=== PATIENT | female | born 1990 | race Caucasian/White ===

== ENCOUNTER 2018-01-26 19:53 | Emergency (ER) | payer OTHER ==
[2018-01-26] MEDS ORDERED: Clindamycin/D5W 900 mg/50 ml Premix Bag ONE (20:14)
[2018-01-26] MEDS ORDERED: Acetaminophen 500 MG TAB ONE (20:20)
--- NOTE | 2018-01-26 21:10 | CT ---
CT OF THE FACE WITH CONTRAST 01/26/18 INDICATION: Left facial swelling with fever. FINDINGS: No definite intracranial abnormality is evident within the visualized aspects of the cranial vault. T here is some mild enhancement of the palpebra and periorbital soft tissues overlying the left orbit. No drainable fluid collection is evident. The retro-orbital fat of both orbits appear within normal l imits. The cheese processor space appears within normal limits. There is a few shotty appearing lymph nodes within the upper neck bilaterally, left greater than right. The submandibular and parotid glands cassidy ear within normal limits. The visualized aspects of the aerodigestive tract are within normal limits. The paranasal sinuses and mastoid air cells are clear. The visualized upper cervical spine is unrema rkable. IMPRESSION: Left preseptal orbital cellulitis without evidence of a drainable fluid collection. POS: CAROL
== END 2018-01-26 23:01 | disposition home or self-care (01) ==
LOC: SCSER 19:53
DX: H60.12 Cellulitis of left external ear (principal); L03.211 Cellulitis of face; H60.91 Unspecified otitis externa, right ear; F98.8 Other specified behavioral and emotional disorders with onset usually occurring in childhood and adolescence; F17.210 Nicotine dependence, cigarettes, uncomplicated; J45.909 Unspecified asthma, uncomplicated; Z79.899 Other long term (current) drug therapy
CPT/HCPCS: 70487; 96361; 96365; 96375; J3370; J3490

== ENCOUNTER 2018-04-12 16:23 | Day surgery (SDC) | payer OTHER ==
[2018-04-12 16:58] VITALS: BMI 35.7
--- NOTE | 2018-04-12 17:15 | PDOC.LDHP ---
Labor and Delivery H&P Chief complaint: other (Here for BP check) HPI: Patient of Dr Turk Home BP was "140" ROS: Has had headache HPI: 28 yo at 24 weeks 0 days here for BP check. Took BP at work and was "140" systolic. Due to MURILLO, came in for eval. Also with some heartburn sxs. No VB , no visual changes, no trauma. Good FM. Current gestational age (weeks): 24 (0 days) Dating criteria: last menstrual period Grav: 3 Para: 0 OB History Details: 2 early SAB2 Current complications: none Abnormal US findings: No Current medications: pre-janna vitamins Previous surgical history: other (T&A; rhinoplasty; breast augmentation) Allergies/Adverse Reactions: Allergies Allergy/AdvReac Type Severity Reaction Status Date / Time adhesive Allergy Mild itch Verified 06/01/14 11:35 morphine Allergy Mild itch Verified 06/01/14 11:35 Social history: none - Physical Exam Vital signs reviewed and normal: yes (127/69;118/63 p 78 Afebrile) General: NAD Heart: RRR Lungs: CTAB Abdomen: gravid Extremeties: no edema FHT: category 1 [place] contractions every: none - Assessment 24 weeks 0 days with MURILLO HX...nortmotensive here. May be discomforts of - Plan Plan: observation in L&D (seriual BPs here; check CMP and CBC. No urine protein now as no elevated BPs yet. Tylenol prn)
[2018-04-12 17:40] LABS: #Eosinphils 0.1 thou/uL (0.0-0.7); #Lymphocytes 1.8 thou/uL (1.20-3.40); #Monocytes 0.6 thou/uL (0.11-0.59); #Neutrophils 9.8 thou/uL (1.40-6.50); %Basophils 0.1 % (0.0-1.0); %Eosinophils 0.9 % (0.0-10.0); %Lymphocytes 14.3 % (21.0-51.0); %Monocytes 5.1 % (0.0-10.0); %Neutrophils 79.7 % (42.0-75.0); Hemoglobin 12.7 g/dL (12.0-16.0); Mean Corpuscular HGB CONC 33.8 g/dL (32.0-36.0); Mean Corpuscular Hemoglobin 32.1 pg (27.0-31.0); Mean Corpuscular Volume 94.7 fL (78.0-98.0); Mean Platelet Volume 8.6 fL (7.4-10.4); Platelet Count 145 thou/uL (130-400); RBC Distribution Width 12.2 % (11.5-14.5); Red Blood Cell (RBC) Count 3.96 mill/uL (4.20-5.40); White Blood Cell (WBC) Count 12.3 thou/uL (4.8-10.8)
--- NOTE | 2018-04-12 17:57 | PDOC.EVN ---
Event Note - Event Note Event Note: CBC wnl...CMP pending. BPs wnl here. Info given to patient.
[2018-04-12 18:08] LABS: ALT (SGPT) 9 U/L (8-55); AST (SGOT) 12 U/L (5-34); Albumin 3.6 g/dL (3.5-5.0); Alkaline Phosphatase 63 U/L (40-150); Anion Gap 12 mmol/L (10-20); BUN (Urea Nitrogen) 4 mg/dL (7.0-18.7); Bilirubin, Total 0.3 mg/dL (0.2-1.2); Calc. Creatinine Clearance 187 mL/min (70-130); Carbon Dioxide 20 mmol/L (22-29); Chloride 107 mmol/L (98-107); Estimated GFR-MDRD Greater than 90; Globulin 2.3 g/dL (2.4-3.5); Glucose 79 mg/dL (70-105); Potassium 3.8 mmol/L (3.5-5.1); Protein, Total 5.9 g/dL (6.0-8.3); Sodium 135 mmol/L (136-145)
--- NOTE | 2018-04-12 18:11 | PDOC.EVN ---
Event Note - Event Note Event Note: CMP ok.
== END 2018-04-12 18:20 | disposition home health service (06) ==
LOC: L&D/OP 16:23
PROVIDERS: ATTEND Obstetrics & Gynecology
DX: O99.89 Other specified diseases and conditions complicating pregnancy, childbirth and the puerperium (principal); R51 Headache; Z3A.24 24 weeks gestation of pregnancy; Z88.8 Allergy status to other drugs, medicaments and biological substances
CPT/HCPCS: 36415; 80053; 85025; 99283

== ENCOUNTER 2018-06-28 13:11 | Day surgery (SDC) | payer OTHER ==
[2018-06-28 14:19] VITALS: BMI 38.0
[2018-06-28] MEDS ORDERED: Dextrose 5%-Lactated Ringers 1,000 ML IV SCH (14:30)
--- NOTE | 2018-06-28 14:33 | PDOC.EVN ---
Event Note - Event Note Event Note: Patient in Triage for N/V at 35 weeks, no evidence of labor H&P Dictated. Patient of Dr Turk. Workup in process.
[2018-06-28 14:49] LABS: #Eosinphils 0.1 thou/uL (0.0-0.7); #Lymphocytes 1.3 thou/uL (1.20-3.40); #Monocytes 0.7 thou/uL (0.11-0.59); #Neutrophils 8.5 thou/uL (1.40-6.50); %Basophils 0.3 % (0.0-1.0); %Eosinophils 0.9 % (0.0-10.0); %Lymphocytes 12.6 % (21.0-51.0); %Monocytes 6.6 % (0.0-10.0); %Neutrophils 79.6 % (42.0-75.0); Mean Corpuscular HGB CONC 33.7 g/dL (32.0-36.0); Mean Corpuscular Hemoglobin 31.1 pg (27.0-31.0); Mean Corpuscular Volume 92.3 fL (78.0-98.0); Mean Platelet Volume 10.3 fL (7.4-10.4); Platelet Count 143 thou/uL (130-400); RBC Distribution Width 12.7 % (11.5-14.5); Red Blood Cell (RBC) Count 4.19 mill/uL (4.20-5.40); White Blood Cell (WBC) Count 10.7 thou/uL (4.8-10.8)
[2018-06-28] MEDS ORDERED: Ondansetron PF 4 MG/2 ML Vial ONE (15:09)
[2018-06-28 15:11] LABS: ALT (SGPT) 13 U/L (8-55); AST (SGOT) 18 U/L (5-34); Albumin 3.4 g/dL (3.5-5.0); Alkaline Phosphatase 163 U/L (40-150); Anion Gap 13 mmol/L (10-20); BUN (Urea Nitrogen) 7 mg/dL (7.0-18.7); Bilirubin, Total 0.2 mg/dL (0.2-1.2); Calc. Creatinine Clearance 212 mL/min (70-130); Carbon Dioxide 21 mmol/L (22-29); Chloride 107 mmol/L (98-107); Estimated GFR-MDRD Greater than 90; Globulin 2.5 g/dL (2.4-3.5); Glucose 98 mg/dL (70-105); Potassium 4.1 mmol/L (3.5-5.1); Protein, Total 5.9 g/dL (6.0-8.3); Sodium 137 mmol/L (136-145)
--- NOTE | 2018-06-28 15:13 | HP ---
TIME OF EVALUATION: Roughly 1415. LOCATION: Labor and Delivery Triage. This is a patient of Dr. Turk. CHIEF COMPLAINT: Nausea and vomiting at 35 weeks. HISTORY OF PRESENT ILLNESS: This is a 28-year-old 3, para 0, with 2 previous miscarriages with an EDC of August 02, giving her a current gestational age of 35 weeks and 0 days. She is here for nausea and vomiting mostly this morning and 2 bouts of emesis. She last had emesis about 1 hour previously. She denies fever, contractions, leakage of fluid, vaginal bleeding, or other sick contacts. She does not have diarrhea or dysuria. She does not state visual changes or right epigastric pain. She states that she has had borderline blood pressures most of this , but her blood pressure here was 136/89. REVIEW OF SYSTEMS: Complete review of systems was checked and is otherwise negative unless specified in the HPI. PAST MEDICAL HISTORY: Unremarkable. She does not take any hypertensive medications. MEDICATIONS: Equals vitamins and Zantac. PAST SURGICAL HISTORY: Rhinoplasty, adenoids, and breast augmentation. ALLERGIES: SHE HAS AN ALLERGY TO MORPHINE AND ADHESIVE TAPE. OBSTRETICAL HISTORY: Significant for 2 previous miscarriages. SOCIAL HISTORY: Negative for alcohol, tobacco, or drug use. PHYSICAL EXAMINATION: VITAL SIGNS: Her blood pressure is 136/89, she is afebrile and non tachycardic. GENERAL: She is in no acute distress. ABDOMEN: Soft and nontender and size consistent with dates. There is no evidence of right upper quadrant tenderness on deep palpation. On monitors, heart tones are in the 130s to 140s and are reactive. There is only one contraction noted on tocodynamometer after about a 10 minute strip. Interventions ordered. I have ordered a CMP, a CBC, and a right upper quadrant ultrasound. I have also ordered 1 L of D5 LR for hydration. ASSESSMENT: This is a G3, P0, at 35 weeks with nonspecific nausea and vomiting , may be gastroenteritis. PLAN: 1. I will do lab work to rule out other etiologies. 2. I will check a right upper quadrant ultrasound. 3. I have ordered hydration for symptomatic relief. 4. Continue monitors for now. Job ID: [id number] MTDD
[2018-06-28] MEDS ORDERED: Ondansetron PF 4 MG/2 ML Vial IVP SCH (15:15)
--- NOTE | 2018-06-28 16:00 | ULT ---
ULTRASOUND GALLBLADDER RIGHT UPPER QUADRANT: 06/28/18 HISTORY: Nausea and vomiting. COMPARISON: None. TECHNIQUE: Real time lewis scale and color evaluation of the right upper quadrant of the abdomen was performed. FINDINGS: The visualized portions of the pancreas are unremarkable. Hepatic echotexture is normal. Liver measures 17.5 cm in length. Gallbladder wall thickness is normal. No pericholecystic fluid. Portal vein is patent with antegrade flow. common bile duct measures 6 mm. Right kidney measures 11.6 x 5.3 x 5.7 cm without mass, hydronephrosis or abnormal calcifications. IMPRESSION: Normal exam. POS: TPC
--- NOTE | 2018-06-28 18:28 | PDOC.EVN ---
Event Note - Event Note Event Note: Triage follow-up: Pt feels better after Zofran. No evidence labor. HCT 38, platelets 133, AST/ALT normal. CR = .64; RUQ US normal liver texture, gallbladder wall normal, no evidence hepatic vein thrombosis, common bile duct 6 mm. Workup normal, send home with Zofran Rx.
== END 2018-06-28 18:30 | disposition home or self-care (01) ==
LOC: L&D/OP 13:11
PROVIDERS: ATTEND Obstetrics & Gynecology
DX: O21.2 Late vomiting of pregnancy (principal); Z3A.35 35 weeks gestation of pregnancy; Z79.899 Other long term (current) drug therapy; Z88.5 Allergy status to narcotic agent; Z91.048 Other nonmedicinal substance allergy status
CPT/HCPCS: 76705; 80053; 85025; 96360; 96361; 96375; 99283; J2405

== ENCOUNTER 2018-07-11 16:42 | Inpatient (IN) | payer OTHER ==
[2018-07-11 17:15] VITALS: BMI 42.1
[2018-07-11 18:11] LABS: Bilirubin Negative (Negative); Blood, Urine Negative (Negative); Clarity CLEAR (Clear); Glucose, Urine (Dipstick) Negative (Negative); Leukocyte Trace (Negative); Nitrite Negative (Negative); Protein, Urine (Dipstick) 30 mg/dL (Neg-Trace); Specific Gravity, Urine 1.022 (1.002-1.036); Urobilinogen 0.2 mg/dL (0.2-1.0)
[2018-07-11 18:14] LABS: Bacteria/HPF None Seen HPF (None Seen); Hyaline Casts/LPF 0-3 HYALINE CAST LPF (0-3 Hyaline); Pathc Cast-AUWi Flag 0.29 (0-2.49); RBC/HPF 0-3 HPF (0-3)
[2018-07-11 18:42] LABS: #Basophils 0.1 thou/uL (0.0-0.2); #Eosinphils 0.1 thou/uL (0.0-0.7); #Lymphocytes 1.4 thou/uL (1.20-3.40); #Monocytes 0.7 thou/uL (0.11-0.59); #Neutrophils 8.8 thou/uL (1.40-6.50); %Basophils 0.6 % (0.0-1.0); %Eosinophils 0.8 % (0.0-10.0); %Lymphocytes 12.9 % (21.0-51.0); %Monocytes 6.5 % (0.0-10.0); %Neutrophils 79.2 % (42.0-75.0); Hemoglobin 13.2 g/dL (12.0-16.0); Mean Corpuscular Hemoglobin 31.7 pg (27.0-31.0); Mean Corpuscular Volume 93.4 fL (78.0-98.0); Mean Platelet Volume 10.7 fL (7.4-10.4); Platelet Count 133 thou/uL (130-400); Red Blood Cell (RBC) Count 4.15 mill/uL (4.20-5.40); White Blood Cell (WBC) Count 11.2 thou/uL (4.8-10.8)
[2018-07-11 18:54] LABS: ALT (SGPT) 13 U/L (8-55); AST (SGOT) 18 U/L (5-34); Albumin 3.2 g/dL (3.5-5.0); Alkaline Phosphatase 168 U/L (40-150); Anion Gap 12 mmol/L (10-20); BUN (Urea Nitrogen) 8 mg/dL (7.0-18.7); Bilirubin, Total 0.2 mg/dL (0.2-1.2); Calc. Creatinine Clearance 184 mL/min (70-130); Calcium 10.5 mg/dL (7.8-10.44); Carbon Dioxide 25 mmol/L (22-29); Chloride 105 mmol/L (98-107); Estimated GFR-MDRD 88; Glucose 75 mg/dL (70-105); Potassium 4.4 mmol/L (3.5-5.1); Protein, Total 6.2 g/dL (6.0-8.3); Sodium 138 mmol/L (136-145)
[2018-07-11 18:55] LABS: Large Platelets SLIGHT; PLT Morphology Comment Appears Adequate
--- NOTE | 2018-07-11 19:09 | PDOC.LDHP ---
Labor and Delivery H&P Chief complaint: other (Nausea, vomitting) HPI: 28 yo WF presents c/o nausea, emesis and swelling at home. Current gestational age (weeks): 37 Due date: 08/02/18 Dating criteria: first trimester ultrasound Grav: 3 Para: 0 OB History Details: PNC with Dr. Turk complicated by elevated BP in 3rd trimester, on ASA 81 mg. Set to induced tomorrow PM. Current complications: other Abnormal US findings: No Past Medical History: SVT- no meds at present Current medications: pre- vitamins, other (ASA as above) Previous surgical history: other (T&A, pilonidal cyst, rhinoplasy,) Allergies/Adverse Reactions: Allergies Allergy/AdvReac Type Severity Reaction Status Date / Time adhesive Allergy Mild itch Verified 06/01/14 11:35 morphine Allergy Mild itch Verified 06/01/14 11:35 Social history: none - Physical Exam Abnormal vital signs: BP per RN notes General: NAD Lungs: nonlabored breathing Abdomen: NTTP Extremeties: pitting edema FHT: category 1 [place] contractions every: no UCs seen - Vaginal Exam cm dilated: 1 Effacement: 50% Station: -1 - OB Labs GBS: positive - Assessment L&D Assessment: medically indicated induction (PIH with normal labs) - Plan Plan: admit to L&D, cervical ripening, GBS antibiotic prophylaxis (Will start Mg if needed, watch BPs carefully, Dr. Turk notified and wants Hospitalist to manage)
[2018-07-11] MEDS ORDERED: Ibuprofen 800 MG TAB PO PRN (19:15)
[2018-07-11] MEDS ORDERED: Zolpidem Tartrate 5 MG TAB PO PRN (19:15)
[2018-07-11] MEDS ORDERED: Meperidine HCl/PF 25 MG/ML VIAL IM/IV PRN (19:15)
[2018-07-11] MEDS ORDERED: Ondansetron PF 4 MG/2 ML Vial IVP PRN (19:15)
[2018-07-11] MEDS ORDERED: Lactated Ringer's 1,000 ML IV SCH (19:15)
[2018-07-11] MEDS ORDERED: NS / Oxytocin 40 units/1000ml 1,000 ML IV PRN (19:15)
[2018-07-11] MEDS ORDERED: Calcium Gluc 4.6 MEQ/10 ML (100 MG/ML) SLOW IVP PRN (19:15)
[2018-07-11] MEDS ORDERED: Acetaminophen 500 MG TAB PO PRN (19:15)
[2018-07-11] MEDS ORDERED: Lidocaine 1% (PF) 30 ML VIAL SC PRN (19:15)
[2018-07-11] MEDS ORDERED: Penicillin G Potassium 5 MILL.UNITS in Sodium Chloride 0.9% 100 ML IVPB SCH (19:15)
[2018-07-11] MEDS ORDERED: Promethazine HCl 25 MG/ML VIAL IM PRN (19:15)
[2018-07-11] MEDS: Lactated Ringer's 1,000 ML IV SCH (20:00)
[2018-07-11] MEDS: Misoprostol 100 MCG TAB VAG SCH (20:18)
[2018-07-11 20:53] LABS: Syphilis Antibody Nonreactive (Nonreactive); Syphilis Antibody Index 0.04 S/CO (<1.00 Non-Reactive)
[2018-07-11 23:49] LABS: HBSAg Index 0.18 S/CO (0-0.99); Hep B Surf Ag Non-Reactive S/CO (NonReactive)
[2018-07-12] MEDS: Misoprostol 100 MCG TAB VAG SCH ×2 (00:29→14:51)
[2018-07-12] MEDS ORDERED: Mag-Al 1200 mg/1200 mg/30 ML UDCUP PO PRN (00:29)
[2018-07-12] MEDS: Lactated Ringer's 1,000 ML IV SCH ×2 (02:46→14:13)
--- NOTE | 2018-07-12 04:51 | PDOC.EVN ---
Event Note - Event Note Event Note: Reports cramping. Cytotec x 2 given so far. BP= 136/90. FHTs stable, + accels. UCs q 2 mins. Plan: Cont. induction. Watch BPs.
[2018-07-12] MEDS: NS w/ Oxytocin 10 units 500 ML IV SCH ×2 (08:07→11:46)
[2018-07-12] MEDS: Penicillin G 2.5 MILL.units 2.5 MILL.UNITS in Premix Bag 1 BAG IVPB SCH ×3 (08:07→18:55)
[2018-07-12] MEDS ORDERED: Fentanyl 4 mcg/Bup 0.1% Cadd 100 ML ONE ×2 (10:38→17:36)
[2018-07-12] MEDS ORDERED: Lidocaine 1.5% w/Epi 1:200K 30 ML VIAL (Epid Use) ONE (10:59)
[2018-07-12] MEDS ORDERED: ePHEDrine/0.9% NaCl/PF SYRINGE 50 mg/10 ml SLOW IVP PRN (11:33)
[2018-07-12] MEDS ORDERED: diphenhydrAMINE 50 MG/ML VIAL IVP PRN (11:33)
[2018-07-12] MEDS ORDERED: Promethazine HCl 25 MG/ML VIAL IM PRN (11:33)
[2018-07-12] MEDS ORDERED: Ondansetron PF 4 MG/2 ML Vial IVP PRN (11:33)
[2018-07-12] MEDS ORDERED: Eucerin (Mineral Oil/Petrolatum,White) 30 gm Jar TOP PRN (11:33)
[2018-07-12] MEDS ORDERED: Acetaminophen 325 MG TAB PO PRN (11:33)
[2018-07-12] MEDS ORDERED: Lactated Ringer's 500 ML IV PRN (11:33)
[2018-07-12] MEDS ORDERED: Naloxone HCl 0.4 mg/ml Vial IVP PRN ×2 (11:33)
[2018-07-12] MEDS ORDERED: Fentanyl 4 mcg/Bupivacaine 0.1% Cassette 100 ML EPIDURAL SCH (11:45)
[2018-07-12] MEDS ORDERED: Communication Order-Pharmacy FS SCH (11:45)
[2018-07-12] MEDS ORDERED: Bupivacaine PF 0.5% 30 ML VIAL ONE (17:00)
[2018-07-12] MEDS ORDERED: traMADol HCl 50 MG TAB PO PRN (20:55)
[2018-07-12] MEDS ORDERED: diphenhydrAMINE 25 MG CAP PO PRN (20:55)
[2018-07-12] MEDS ORDERED: Milk Of Magnesia 30 ML UDCUP PO PRN (20:55)
[2018-07-12] MEDS ORDERED: Preparation H Ointment 28 GM TUBE PR PRN (20:55)
[2018-07-12] MEDS ORDERED: Bisacodyl 10 MG SUPP PR PRN (20:55)
[2018-07-12] MEDS ORDERED: Lanolin Ointment 7 GM TUBE TOP PRN (20:55)
[2018-07-12] MEDS ORDERED: Zolpidem Tartrate 5 MG TAB PO PRN (20:55)
[2018-07-12] MEDS ORDERED: Misoprostol 200 MCG TAB VAG PRN (20:55)
[2018-07-12] MEDS ORDERED: Benzocaine/Menthol 20-0.5% 60 ML CAN TOP PRN (20:55)
--- NOTE | 2018-07-12 20:58 | PDOC.OPDEL ---
OB Operative/Delivery Note Delivery Dr/Surgeon: Rosalee Pre-Delivery Diagnosis: medically indicated induction Procedure/Post Delivery Dx: operative vaginal delivery (low forcep assisted vaginal delivery c/c/+4 OA for maternal exhaution.) Anesthesia: epidural - Findings A Sex: female - 1 min: 8 - 5 min: 9 - Additional Findings/Plan Placenta delivered: spontaneous Repaired Obstetrical Laceration: 2nd degree Estimated blood loss: 516 ml qbl
[2018-07-12] MEDS ORDERED: NS / Oxytocin 40 units/1000ml 1,000 ML IV SCH (21:00)
[2018-07-12] MEDS: Ibuprofen 800 MG TAB PO SCH (22:05)
[2018-07-12] MEDS: Docusate Calcium (SURFAK) 240 MG CAP PO SCH (23:38)
[2018-07-13] MEDS: Ibuprofen 800 MG TAB PO SCH ×3 (05:44→21:15)
--- NOTE | 2018-07-13 05:50 | PDOC.PP ---
Post Progress Note Post Day #: 1 Subjective: Doing well after last PM forecps delivery PO intake tolerated: yes Flatus: yes Ambulation: yes Vital Signs (12 hours) Temp Pulse Resp BP Pulse Ox 07/13/18 01:25 98.1 F 99 18 130/60 07/13/18 00:15 98.0 F 98 18 128/63 07/12/18 23:15 98.9 F 96 18 129/70 96 Weight Weight 238 lb - Physical Examination General: NAD Cardiovascular: no m/r/g Respiratory: clear to auscultation bilaterally Abdominal: + bowel sounds, lochia, no distention Extremities: negative homans (B) Neurological: no gross focal deficits Psychiatric: A&Ox3, normal affect Result Diagrams: 07/11/18 17:57 07/11/18 17:57 Additional Labs: Post Labs Blood Type O POSITIVE 07/11/18 20:05 Hep Bs Antigen Non-Reactive S/CO (NonReactive) 07/11/18 20:05 (1) Forceps delivery Code(s): O66.5 - ATTEMPTED APPLICATION OF VACUUM EXTRACTOR AND FORCEPS Status : Acute - Assessment/Plan PPD 1 for this (now), s/p forceps with second degree lac. Continue in-house observation. Likely DC to home tomorrow 07/14
[2018-07-13] MEDS: Misoprostol 100 MCG TAB VAG SCH ×2 (07:29→07:30)
[2018-07-13] MEDS: Penicillin G 2.5 MILL.units 2.5 MILL.UNITS in Premix Bag 1 BAG IVPB SCH (07:30)
[2018-07-13] MEDS: Lactated Ringer's 1,000 ML IV SCH (07:30)
[2018-07-13] MEDS: Ferrous Sulfate 325 MG TAB PO SCH ×2 (07:31→15:54)
[2018-07-13] MEDS ORDERED: Adacel (T-DAP) 0.5 ML SYRINGE IM ONE (09:00)
[2018-07-13] MEDS: Docusate Calcium (SURFAK) 240 MG CAP PO SCH ×2 (09:43→21:15)
[2018-07-13] MEDS: Prenatal Vitamin 1 TAB PO SCH (09:43)
[2018-07-14] MEDS: Ibuprofen 800 MG TAB PO SCH ×2 (05:51→14:08)
[2018-07-14 06:35] VITALS: TEMP 98.3
--- NOTE | 2018-07-14 06:59 | PDOC.PP ---
Post Progress Note Post Day #: 1.5 Subjective: pt doing well. baby under bili lights for 6 hr PO intake tolerated: yes Flatus: yes Ambulation: yes Vital Signs (12 hours) Temp Pulse Resp BP Pulse Ox 07/14/18 05:30 98.3 F 92 18 138/91 H 07/14/18 00:00 97.7 F 92 18 148/82 H 07/13/18 20:00 98.8 F 99 18 143/83 H 97 Weight Weight 238 lb - Physical Examination General: NAD Cardiovascular: no m/r/g, RRR Respiratory: clear to auscultation bilaterally, non-labored breathing Abdominal: + bowel sounds, lochia Extremities: negative homans (B) Neurological: no gross focal deficits Psychiatric: A&Ox3, normal affect Result Diagrams: 07/11/18 17:57 07/11/18 17:57 Additional Labs: Post Labs Blood Type O POSITIVE 07/11/18 20:05 Hep Bs Antigen Non-Reactive S/CO (NonReactive) 07/11/18 20:05 - Assessment/Plan doing well routine care dc 1/7 am
[2018-07-14 08:27] VITALS: BP 115/56
[2018-07-14] MEDS: Ferrous Sulfate 325 MG TAB PO SCH ×2 (10:07→16:26)
[2018-07-14] MEDS: Prenatal Vitamin 1 TAB PO SCH (10:08)
[2018-07-14] MEDS: Docusate Calcium (SURFAK) 240 MG CAP PO SCH (10:11)
--- NOTE | 2018-07-14 14:26 | PDOC.EVN ---
Event Note - Event Note Event Note: CTSP by floor RN. Wants to go home, baby has been discharged. BPs look good. Precautions reviewed. RTC in [address] Turk.
[2018-07-14] MEDS ORDERED: Measles/Mumps/Rubella 10 MCG/0.5 ML VIAL SC ONE (15:15)
== END 2018-07-14 16:55 | disposition home or self-care (01) | DRG 807 ==
LOC: L&D/OP 16:42 → L&D 20:35 → 3SW 07-12 23:14
PROVIDERS: ADMIT Obstetrics & Gynecology; ATTEND Obstetrics & Gynecology
PROC: 10D07Z3 Extraction of Products of Conception, Low Forceps, Via Natural or Artificial Opening (ICD-10-PCS; principal; 2018-07-12)
PROC: 0KQM0ZZ Repair Perineum Muscle, Open Approach (ICD-10-PCS; 2018-07-12)
PROC: 3E033VJ Introduction of Other Hormone into Peripheral Vein, Percutaneous Approach (ICD-10-PCS; 2018-07-12)
PROC: 3E0P7VZ Introduction of Hormone into Female Reproductive, Via Natural or Artificial Opening (ICD-10-PCS; 2018-07-12)
PROC: 3E0234Z Introduction of Serum, Toxoid and Vaccine into Muscle, Percutaneous Approach (ICD-10-PCS; 2018-07-14)
DX: O14.94 Unspecified pre-eclampsia, complicating childbirth (principal); Z37.0 Single live birth; Z3A.37 37 weeks gestation of pregnancy; O70.1 Second degree perineal laceration during delivery; O99.824 Streptococcus B carrier state complicating childbirth; Z23 Encounter for immunization
CPT/HCPCS: 36415; 51702; 80053; 81003; 81015; 85025; 86780; 86850; 86900; 86901; 87340; 90707; 99285; J1200; J2001; J2405; J2540; J7050; S0020

== ENCOUNTER → 2019-11-12 | Day surgery (SDC) | payer OTHER ==
[~2019-11-12] MED LIST: hydrALAZINE 20 MG/ML VIAL SLOW IVP PRN
[2019-11-12 20:08] VITALS: BP 126/88; TEMP 98.4; BMI 35.5
--- NOTE | 2019-11-12 22:52 | PRG ---
DATE OF SERVICE: 11/12/2019 PRIMARY OB: Yue Turk MD CHIEF COMPLAINT: Elevated blood pressures. HISTORY OF PRESENT ILLNESS: The patient is a 29-year-old G6, P1 female with an intrauterine at 27 weeks and 6 days, presenting to Labor and Delivery with concerns of elevated blood pressures. The patient reports that she is having pressures in the 140s to 150s today over 90s. She has a history of preeclampsia with her previous and is on aspirin. She also reports that she has started on labetalol a couple weeks ago for elevated pressures, but is unsure whether she has a diagnosis of preeclampsia or -induced hypertension at this point. The patient denies any fever, headache, chest pain, shortness of breath, nausea, vomiting, diarrhea, constipation, hip problems, knee problems, or muscle weakness. Denies any new rashes or vaginal bleeding. She does report she is having some mucousy discharge and increased discharge in the last couple of days. She also reports she is having some crampiness. PAST MEDICAL HISTORY: Depression and paroxysmal supraventricular tachycardia. PAST SURGICAL HISTORY: Tonsillectomy, rhinoplasty, breast augmentation. ALLERGIES: ADHESIVE AND MORPHINE. MEDICATIONS: 1. vitamins. 2. Aspirin. SOCIAL HISTORY: Denies drug, alcohol, or tobacco use. OB LABS: Unavailable at the time of dictation. REVIEW OF SYSTEMS: Per HPI. PHYSICAL EXAMINATION: VITAL SIGNS: Blood pressure on initial presentation 126/88, heart rate of 101, respiratory rate 16, saturating 98% on room air, temperature 98.4. GENERAL: She appears to be in no acute distress. She is alert, oriented, cooperative, and pleasant to interact with. HEAD: Normocephalic and atraumatic. LUNGS: Clear to auscultation bilaterally. HEART: Regular rate and rhythm. ABDOMEN: Gravid, soft, nontender. EXTREMITIES: Nontender and nonedematous. VULVA: Without masses, lesions, or erythema. Vagina is moist. She does have a mucousy discharge on speculum exam with plaque-like discharge on her cervix and odor of noticeable reminiscent of bacterial vaginosis. The swab was collected for VP3. On digital exam, cervix is closed and thick. DIAGNOSTIC DATA: heart tracing shows the fetus with a baseline in the 150s with moderate long-term variability, positive 15 x 15 accelerations. Tocometer is not showing any irregular contraction pattern, perhaps some irritability present. Urinalysis for protein to creatinine ratio shows a protein creatinine ratio of 0.18. VP3 has been collected, but not returned yet. ASSESSMENT AND PLAN: The patient is a 29-year-old female with a diagnosis of PIH on labetalol, here for elevated pressures. The patient is otherwise asymptomatic. She is being discharged home and has been asked to keep track of her blood pressures and the timing to her medication use. As by history today, it sounds as if the elevated pressures were present right before her evening dose of medication. The patient has an appointment tomorrow with Dr. Turk, but she has been encouraged to keep the VP3 results tomorrow before to her office. Fetus otherwise has a category 1 tracing reactive NST. vp3 results +BV. metronidazole 500 po bid #[id number] electronically sent to preferred pharmacy on record ([facility]) Job ID: [id number] MTDD
== END ==
LOC: L&D/OP 19:36
PROVIDERS: ATTEND Obstetrics & Gynecology
DX: O99.89 Other specified diseases and conditions complicating pregnancy, childbirth and the puerperium (principal); R03.0 Elevated blood-pressure reading, without diagnosis of hypertension; O23.592 Infection of other part of genital tract in pregnancy, second trimester; B96.89 Other specified bacterial agents as the cause of diseases classified elsewhere; Z3A.27 27 weeks gestation of pregnancy; Z79.82 Long term (current) use of aspirin; Z88.5 Allergy status to narcotic agent; Z91.048 Other nonmedicinal substance allergy status
CPT/HCPCS: 82570; 84156; 87480; 87510; 87660

== ENCOUNTER 2019-12-05 12:11 | Day surgery (SDC) | payer OTHER ==
[2019-12-05 12:32] VITALS: BP 130/63; TEMP 100; BMI 36.3
[2019-12-05] MEDS ORDERED: hydrALAZINE 20 MG/ML VIAL SLOW IVP PRN (13:26)
[2019-12-05 13:27] LABS: Bilirubin Negative (Negative); Blood, Urine Negative (Negative); Clarity Clear (Clear); Glucose, Urine (Dipstick) 70 mg/dL (Negative); Leukocyte 250 Leu/uL (Negative); Mucous/LPF 1+ LPF (<2+); Nitrite Negative (Negative); Protein, Urine (Dipstick) 30 mg/dL (Neg-Trace); RBC/HPF 0-3 HPF (0-3); Urobilinogen Normal mg/dL (Less than 2)
[2019-12-05 13:28] LABS: Bacteria/HPF 1+ HPF (None Seen)
--- NOTE | 2019-12-05 14:43 | HP ---
PRIMARY FOREST EXAMINER: Dr. Yue Turk. CHIEF COMPLAINT: There is cramping. HISTORY OF PRESENT ILLNESS: The patient is a 29-year-old, G6, P1 female with an intrauterine at 31 weeks and 1 day, presenting with several-hour history of abdominal cramping. She reports that she feels primarily on the left side, comes about every 15 minutes and lasts about 20 to 30 seconds. She believes that she is just overexert herself, but came to make sure she was not showing any signs of labor. The patient reports that this pain is not intense. She denies vaginal bleeding or change in discharge. She recently completed antibiotics for bacterial vaginosis and reports her discharge had resolved. The patient denies fever, cough, headache, chest pain, or shortness of breath. She has been experiencing nausea. Denies vomiting. Denies diarrhea or constipation. Denies skin changes, hip problems, knee problems, or muscle weakness. Denies again vaginal bleeding, leakage of fluid, urinary urgency, or frequency. PAST MEDICAL HISTORY: 1. Depression. 2. PSVT. 3. PIH. PAST SURGICAL HISTORY: 1. Tonsillectomy. 2. Rhinoplasty. 3. Breast augmentation. ALLERGIES: ADHESIVE AND MORPHINE. MEDICATIONS: 1. vitamins. 2. Aspirin. 3. She is also taking labetalol 200 mg twice a day. SOCIAL HISTORY: Denies drug, alcohol, or tobacco use. OBSTETRIC LABORATORY DATA: Unavailable at the time of dictation. REVIEW OF SYSTEMS: Per HPI. PHYSICAL EXAMINATION: VITAL SIGNS: Blood pressure 130/63, heart rate of 101, saturating 97% on room air, and respiratory rate 20. GENERAL: She appears to be in no acute distress. She is alert, oriented, cooperative, and pleasant to interact with. HEAD: Normocephalic and atraumatic. LUNGS: Clear to auscultation bilaterally. HEART: Regular rate and rhythm. ABDOMEN: Gravid, soft, nontender. MUSCULOSKELETAL: She has no SI joint tenderness. No vertebral tenderness. No paravertebral tenderness. No CVA tenderness. GENITALIA: Vulva is without masses, lesions, or erythema. Vagina is moist without any significant discharge. Cervix is closed and thick per digital exam. heart tracing shows the fetus with a baseline in the 150s with moderate long-term variability, positive 15 x 15 accelerations, no decelerations. Tocometer is without contractions. LABORATORY DATA: Urinalysis results include specific gravity 1.022, protein 30, glucose 70, leukocyte esterase 25, nitrites negative, rbc's 0-3, white blood cells 4-6, squamous cells 11-20, bacteria 1+, mucus 1+. ASSESSMENT AND PLAN: The patient is a 29-year-old, G6, P1 female with an intrauterine at 31 weeks and 1 day, presenting with abdominal cramping. There is no evidence of labor at this time. Urinalysis is difficult to interpret given the significant amount of squamous cells present. Pt being discharged home with PTL precautions. Fetus has a reactive NST. Job ID: [id number] [facility]
== END 2019-12-05 13:31 | disposition home or self-care (01) ==
LOC: L&D/OP 12:11
PROVIDERS: ATTEND Obstetrics & Gynecology
DX: O99.89 Other specified diseases and conditions complicating pregnancy, childbirth and the puerperium (principal); R10.9 Unspecified abdominal pain; Z3A.31 31 weeks gestation of pregnancy; Z79.82 Long term (current) use of aspirin; Z79.899 Other long term (current) drug therapy; Z88.5 Allergy status to narcotic agent; Z91.048 Other nonmedicinal substance allergy status
CPT/HCPCS: 81001

== ENCOUNTER 2019-12-09 21:48 | Day surgery (SDC) | payer OTHER ==
[2019-12-09] MEDS ORDERED: Adenosine 6 MG/2 ML VIAL ONE (21:52)
[2019-12-09 22:04] LABS: #Eosinphils 0.1 thou/uL (0.0-0.7); #Monocytes 0.7 thou/uL (0.11-0.59); #Neutrophils 9.2 thou/uL (1.40-6.50); %Basophils 0.2 % (0.0-1.0); %Eosinophils 0.6 % (0.0-10.0); %Lymphocytes 16.7 % (21.0-51.0); %Monocytes 5.9 % (0.0-10.0); %Neutrophils 76.6 % (42.0-75.0); Hemoglobin 12.7 g/dL (12.0-16.0); Mean Corpuscular Hemoglobin 31.5 pg (27.0-31.0); Mean Corpuscular Volume 92.6 fL (78.0-98.0); Mean Platelet Volume 10.5 fL (7.4-10.4); Platelet Count 120 thou/uL (130-400); RBC Distribution Width 13.4 % (11.5-14.5); Red Blood Cell (RBC) Count 4.05 mill/uL (4.20-5.40); White Blood Cell (WBC) Count 11.9 thou/uL (4.8-10.8)
[2019-12-09 22:24] LABS: ALT (SGPT) 10 U/L (8-55); AST (SGOT) 20 U/L (5-34); Albumin 3.6 g/dL (3.5-5.0); Alkaline Phosphatase 110 U/L (40-110); Anion Gap 11 mmol/L (10-20); BUN (Urea Nitrogen) 9 mg/dL (7.0-18.7); Bilirubin, Total 0.3 mg/dL (0.2-1.2); CK (CPK) 274 U/L (29-168); Calc. Creatinine Clearance 0 mL/min (70-130); Calcium 9.7 mg/dL (7.8-10.44); Carbon Dioxide 27 mmol/L (22-29); Chloride 104 mmol/L (98-107); Estimated GFR-MDRD 87; Globulin 2.7 g/dL (2.4-3.5); Glucose 79 mg/dL (70-105); Potassium 3.6 mmol/L (3.5-5.1); Protein, Total 6.3 g/dL (6.0-8.3); Sodium 138 mmol/L (136-145)
[2019-12-10] MEDS ORDERED: hydrALAZINE 20 MG/ML VIAL SLOW IVP PRN (00:44)
--- NOTE | 2019-12-10 01:31 | PRG ---
DATE OF SERVICE: 12/09/2019 PRIMARY OB: Yue Turk MD CHIEF COMPLAINT: SVT. HISTORY OF PRESENT ILLNESS: The patient is a 29-year-old G6, P1 female with an intrauterine at 31 weeks and 5 days, who presented to the emergency room after experiencing an episode of paroxysmal supraventricular tachycardia. The patient reports that she attempted to convert herself at home for about 30 minutes and was unsuccessful. She began feeling like her blood pressure was dropping significantly and came for help in the emergency room. She was converted successfully with adenosine and patient was sent up to Labor and Delivery for monitoring of the baby. On arrival, the patient reports that she is feeling a lot better. She denies any more chest pressure, pain, headache, fever, nausea, vomiting, diarrhea, or constipation. She denies hip problems, knee problems, or muscle weakness. PAST MEDICAL HISTORY: Depression, paroxysmal supraventricular tachycardia, and PIH. PAST SURGICAL HISTORY: Tonsillectomy, rhinoplasty, and breast augmentation. ALLERGIES: ADHESIVE AND MORPHINE. MEDICATIONS: 1. vitamins. 2. Aspirin. 3. Labetalol 200 mg twice a day. SOCIAL HISTORY: Denies drug, alcohol, or tobacco use. OB LABS: Unavailable at the time of dictation. REVIEW OF SYSTEMS: Per HPI. PHYSICAL EXAMINATION: VITAL SIGNS: Blood pressure 99/56, heart rate of 100, saturating 97% on room air. GENERAL: She appears to be in no acute distress. She is alert and oriented, cooperative, and pleasant to interact with. HEAD: Normocephalic, atraumatic. LUNGS: Clear to auscultation bilaterally. ABDOMEN: Soft, gravid, nontender. heart tracing shows the fetus with a baseline in the 130s with moderate long-term variability, positive 15 x 15 accelerations, no decelerations. Tocometer is void of contractions. ASSESSMENT AND PLAN: The patient is a 29-year-old female, who experienced an episode of PSVT converted with adenosine down the emergency room. She has been monitored here for an hour. Baby has a category 1 tracing and reactive NST. The patient has been discharged home and has instructions to follow up with her primary OB as scheduled. Job ID: [id number]
--- NOTE | 2019-12-13 14:25 | EKG ---
Test Reason : Blood Pressure : / mmHG Vent. Rate : 102 BPM Atrial Rate : 102 BPM P-R Int : 122 ms QRS Dur : 092 ms QT Int : 350 ms P-R-T Axes : 056 059 012 degrees QTc Int : 456 ms Supraventricular tachycardia with ST depression in inferolateral leads Abnormal ECG Confirmed by ALEX ROACH, VERA Melo ([id number]), editor house organ WILLIAM HALL ([id number]) on 12/13/2019 2:24:23 PM Referred By: ALEX Confirmed By:VERA JOHNSON MD
--- NOTE | 2019-12-13 14:38 | EKG ---
Test Reason : Blood Pressure : / mmHG Vent. Rate : 235 BPM Atrial Rate : 235 BPM P-R Int : 056 ms QRS Dur : 184 ms QT Int : 186 ms P-R-T Axes : 000 071 000 degrees QTc Int : 367 ms Supraventricular tachycardia with ST depression in inferior/lateral leads Abnormal ECG Confirmed by ALEX ROACH, VERA Melo ([id number]), graphic editor WILLIAM HALL ([id number]) on 12/13/2019 2:38:17 PM Referred By: Confirmed By:VERA JOHNSON MD
== END 2019-12-10 00:03 | disposition home or self-care (01) ==
LOC: ERS 21:48 → L&D/OP 22:50
PROVIDERS: ATTEND Obstetrics & Gynecology
DX: O99.413 Diseases of the circulatory system complicating pregnancy, third trimester (principal); I47.1 Supraventricular tachycardia; O13.3 Gestational [pregnancy-induced] hypertension without significant proteinuria, third trimester; O99.343 Other mental disorders complicating pregnancy, third trimester; F32.9 Major depressive disorder, single episode, unspecified; Z79.82 Long term (current) use of aspirin; Z79.899 Other long term (current) drug therapy; Z3A.31 31 weeks gestation of pregnancy
CPT/HCPCS: 80053; 82550; 84484; 85025; 93005; 94760; 96361; 96374; J0153

== ENCOUNTER 2020-01-01 14:46 | Day surgery (SDC) | payer OTHER ==
[2020-01-01 15:18] VITALS: BMI 37.5
[2020-01-01] MEDS ORDERED: hydrALAZINE 20 MG/ML VIAL SLOW IVP PRN (15:32)
--- NOTE | 2020-01-01 16:15 | ULT ---
ULTRASOUND BIOPHYSICAL PROFILE: HISTORY: distress, hypertension FINDINGS: A single live intrauterine gestation is seen. heart rate:153bpm LILA: 13.9 cm Placenta: Anterior without placenta previa OB biophysical profile: tone: 2 breathin movements: 2 Amniotic fluid: 2 IMPRESSION: The ultrasound biophysical profile score is 8 out of 8.
[2020-01-01 16:17] LABS: Creatinine, Urine 44.61 mg/dL (47-110)
[2020-01-01 16:39] LABS: #Eosinphils 0.1 thou/uL (0.0-0.7); #Lymphocytes 1.6 thou/uL (1.20-3.40); #Monocytes 0.7 thou/uL (0.11-0.59); #Neutrophils 10.5 thou/uL (1.40-6.50); %Basophils 0.2 % (0.0-1.0); %Eosinophils 0.6 % (0.0-10.0); %Lymphocytes 12.4 % (21.0-51.0); %Monocytes 5.7 % (0.0-10.0); %Neutrophils 81.2 % (42.0-75.0); Hemoglobin 12.1 g/dL (12.0-16.0); Mean Corpuscular Hemoglobin 30.6 pg (27.0-31.0); Mean Corpuscular Volume 90.1 fL (78.0-98.0); Mean Platelet Volume 11.2 fL (7.4-10.4); Platelet Count 128 thou/uL (130-400); RBC Distribution Width 15.1 % (11.5-14.5); Red Blood Cell (RBC) Count 3.94 mill/uL (4.20-5.40)
[2020-01-01 17:02] LABS: ALT (SGPT) 14 U/L (8-55); AST (SGOT) 15 U/L (5-34); Albumin 3.2 g/dL (3.5-5.0); Alkaline Phosphatase 138 U/L (40-110); Anion Gap 11 mmol/L (10-20); BUN (Urea Nitrogen) 5 mg/dL (7.0-18.7); Bilirubin, Total 0.2 mg/dL (0.2-1.2); Calc. Creatinine Clearance 195 mL/min (70-130); Calcium 9.2 mg/dL (7.8-10.44); Carbon Dioxide 19 mmol/L (22-29); Chloride 109 mmol/L (98-107); Estimated GFR-MDRD Greater than 90; Globulin 2.7 g/dL (2.4-3.5); Glucose 94 mg/dL (70-105); Potassium 3.9 mmol/L (3.5-5.1); Protein, Total 5.9 g/dL (6.0-8.3); Sodium 135 mmol/L (136-145)
[2020-01-01] MEDS ORDERED: Promethazine HCl 25 MG/ML VIAL IM/IV PRN (17:39)
--- NOTE | 2020-01-01 18:55 | PRG ---
DATE OF SERVICE: 01/01/2020 TIME OF SERVICE: 1805 hours. PRESENTING COMPLAINT: Headache at 35 weeks' gestation. HISTORY OF PRESENT ILLNESS: Ms. Jiménez is a 29-year-old 6, para 1, AB 4, at 35 weeks with an EDC of 02/04. She is O positive. She has a history of supraventricular tachycardia, previous preeclampsia, and hypertension. She reports off and on headache throughout her that has not improved today despite being on her labetalol and taking Bupap which she has previously been prescribed. She reports photophobia. She denies significant nausea or vomiting. She denies scotoma. 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 PAST MEDICAL HISTORY: Significant for hypertension and supraventricular tachycardia. She had an adenosine cardioversion at 31 weeks' gestation. PAST SURGICAL HISTORY: Denies. ALLERGIES: ADHESIVE AND MORPHINE. MEDICATIONS: Labetalol 200 b.i.d., baby aspirin, butalbital, and bupropion. SOCIAL HISTORY: Denies tobacco, alcohol, or IV drug use. FAMILY HISTORY: Noncontributory. REVIEW OF SYSTEMS: Noncontributory. PHYSICAL EXAMINATION: GENERAL: White female, mild photophobia. VITAL SIGNS: Blood pressures; the patient has had one systolic in the 130s, one in the low 140s, rest of them were in the 120s. Diastolics were in the 80s. Pulse 85 to 92, respirations 18, temperature 98.4. HEENT: Within normal limits. LUNGS: Clear to auscultation bilaterally. HEART: Regular rate and rhythm. ABDOMEN: Soft and nontender. No CVA tenderness. EXTREMITIES: Without clubbing, cyanosis, or edema. 1+ DTRs. DIAGNOSTIC DATA: monitoring was carried out which revealed category 1 tracing, 130s to 140s baseline, positive accelerations. BPP and LILA were carried out which revealed normal LILA and BPP of 8/8, vertex presentation. LABORATORY DATA: Evaluation was carried out which revealed a steady platelet count in the low 100s. Creatinine was within normal limits. Protein-creatinine ratio was approximately 0.25, and liver functions were within normal limits. PLAN: Discussed with the patient options. I was hesitant to discharge the patient home secondary to her persistent headache despite severe hypertensive findings. The patient was administered 25 mg of Phenergan IM with a plan to observe for 2 hours. The patient desired discharge home and promised to return to hospital if headache worsened or other symptoms developed. The patient will keep scheduled followup with Dr. Turk. Job ID: [id number]
== END 2020-01-01 18:15 | disposition home health service (06) ==
LOC: L&D/OP 14:46
PROVIDERS: ATTEND Obstetrics & Gynecology
DX: O99.89 Other specified diseases and conditions complicating pregnancy, childbirth and the puerperium (principal); R51 Headache; O16.3 Unspecified maternal hypertension, third trimester; Z79.82 Long term (current) use of aspirin; Z79.899 Other long term (current) drug therapy; Z88.5 Allergy status to narcotic agent; Z91.048 Other nonmedicinal substance allergy status
CPT/HCPCS: 36415; 76819; 80053; 82570; 84156; 85025; J2550

== ENCOUNTER → 2020-01-12 | Outpatient (CLI) | payer OTHER ==
[2020-01-13 13:11] LABS: SARS-CoV-2 MS2 Positive; SARS-CoV-2 N Gene Negative; SARS-CoV-2 S Gene Negative; SARS-CoV-2 orf1ab Negative
== END ==
LOC: SCSLAB 16:55
PROVIDERS: ATTEND Obstetrics & Gynecology
DX: Z01.812 Encounter for preprocedural laboratory examination (principal); Z11.59 Encounter for screening for other viral diseases
CPT/HCPCS: 87635; U0003

== ENCOUNTER 2020-01-14 18:57 | Inpatient (IN) | payer OTHER ==
[~2020-01-14 18:57] MED LIST changes: +Bupivacaine/Epinephrine 0.25% 30 ML VIAL ONE; +EPHEDRINE 25 MG/5 ML SYRINGE ONE; -hydrALAZINE 20 MG/ML VIAL SLOW IVP PRN
[2020-01-14] MEDS ORDERED: Ondansetron PF 4 MG/2 ML Vial IVP PRN (19:04)
[2020-01-14] MEDS ORDERED: NS w/ Oxytocin 10 units 500 ML IV SCH (19:04)
[2020-01-14] MEDS ORDERED: hydrALAZINE 20 MG/ML VIAL SLOW IVP PRN (19:04)
[2020-01-14] MEDS ORDERED: Zolpidem Tartrate 5 MG TAB PO PRN (19:04)
[2020-01-14] MEDS ORDERED: Acetaminophen 500 MG TAB PO PRN (19:04)
[2020-01-14] MEDS ORDERED: Butorphanol Tartrate 1 MG/ML VIAL SLOW IVP PRN (19:04)
[2020-01-14] MEDS ORDERED: Promethazine HCl 25 MG/ML VIAL IM PRN (19:04)
[2020-01-14] MEDS ORDERED: Lidocaine 1% (PF) 30 ML VIAL SC PRN (19:04)
[2020-01-14 19:54] VITALS: BMI 38.9
[2020-01-14 19:56] LABS: Hemoglobin 11.7 g/dL (12.0-16.0); Mean Corpuscular HGB CONC 33.9 g/dL (32.0-36.0); Mean Corpuscular Hemoglobin 30.1 pg (27.0-31.0); Mean Corpuscular Volume 88.9 fL (78.0-98.0); Mean Platelet Volume 11.1 fL (7.4-10.4); Platelet Count 131 thou/uL (130-400); RBC Distribution Width 15.6 % (11.5-14.5); Red Blood Cell (RBC) Count 3.88 mill/uL (4.20-5.40); White Blood Cell (WBC) Count 12.7 thou/uL (4.8-10.8)
[2020-01-14 20:34] LABS: Syphilis Antibody Nonreactive (Nonreactive); Syphilis Antibody Index 0.07 S/CO (<1.00 Non-Reactive)
[2020-01-14 23:03] LABS: HBSAg Index 0.11 S/CO (0-0.99); Hep B Surf Ag Non-Reactive S/CO (NonReactive)
[2020-01-14] MEDS: Lactated Ringer's 1,000 ML IV SCH (23:05)
[2020-01-15 02:35] LABS: ALT (SGPT) 11 U/L (8-55); AST (SGOT) 18 U/L (5-34); Albumin 3.2 g/dL (3.5-5.0); Alkaline Phosphatase 156 U/L (40-110); Anion Gap 13 mmol/L (10-20); BUN (Urea Nitrogen) 5 mg/dL (7.0-18.7); Bilirubin, Total 0.2 mg/dL (0.2-1.2); Calc. Creatinine Clearance 188 mL/min (70-130); Carbon Dioxide 20 mmol/L (22-29); Chloride 107 mmol/L (98-107); Estimated GFR-MDRD Greater than 90; Globulin 2.2 g/dL (2.4-3.5); Glucose 85 mg/dL (70-105); Potassium 3.9 mmol/L (3.5-5.1); Protein, Total 5.4 g/dL (6.0-8.3); Sodium 136 mmol/L (136-145)
[2020-01-15] MEDS: Calcium Carbonate 500 MG ChewTAB PO PRN ×2 (05:02→14:11)
[2020-01-15] MEDS ORDERED: Fentanyl 4 mcg/Bup 0.1% Cadd 100 ML ONE ×2 (05:47→12:25)
[2020-01-15] MEDS: NS w/ Oxytocin 10 units 500 ML IV SCH ×2 (06:40→10:18)
[2020-01-15] MEDS: Lactated Ringer's 1,000 ML IV SCH ×2 (06:40→14:12)
[2020-01-15] MEDS ORDERED: Acetaminophen 325 MG TAB PO PRN (06:44)
[2020-01-15] MEDS ORDERED: Ondansetron PF 4 MG/2 ML Vial IVP PRN ×2 (06:44→18:45)
[2020-01-15] MEDS ORDERED: Lactated Ringer's 500 ML IV PRN (06:44)
[2020-01-15] MEDS ORDERED: Naloxone HCl 0.4 mg/ml Vial IVP PRN ×2 (06:44)
[2020-01-15] MEDS ORDERED: Promethazine HCl 25 MG/ML VIAL IM PRN ×2 (06:44→18:45)
[2020-01-15] MEDS ORDERED: EPHEDRINE 25 MG/5 ML SYRINGE SLOW IVP PRN (06:44)
[2020-01-15] MEDS ORDERED: Communication Order-Pharmacy FS SCH (06:45)
[2020-01-15] MEDS ORDERED: Fentanyl 4 mcg/Bupivacaine 0.1% Cassette 100 ML EPIDURAL SCH (06:45)
[2020-01-15] MEDS ORDERED: diphenhydrAMINE 50 MG/ML VIAL ONE (07:47)
[2020-01-15] MEDS: diphenhydrAMINE 50 MG/ML VIAL IVP PRN ×3 (07:50→17:55)
[2020-01-15] MEDS ORDERED: Misoprostol 200 MCG TAB ONE (16:30)
[2020-01-15] MEDS ORDERED: Methylergonovine 0.2 MG/ML VIAL ONE (16:30)
[2020-01-15] MEDS ORDERED: Carboprost 250 MCG/ML AMP ONE (16:31)
[2020-01-15] MEDS: NS / Oxytocin 40 units/1000ml 1,000 ML IV PRN ×2 (17:24→18:55)
[2020-01-15] MEDS ORDERED: diphenhydrAMINE 25 MG CAP PO PRN (18:45)
[2020-01-15] MEDS ORDERED: Preparation H Ointment 28 GM TUBE PR PRN (18:45)
[2020-01-15] MEDS ORDERED: hydrALAZINE 20 MG/ML VIAL SLOW IVP PRN (18:45)
[2020-01-15] MEDS ORDERED: Bisacodyl 10 MG SUPP PR PRN (18:45)
[2020-01-15] MEDS ORDERED: NS / Oxytocin 40 units/1000ml 1,000 ML IV SCH (18:45)
[2020-01-15] MEDS ORDERED: Zolpidem Tartrate 5 MG TAB PO PRN (18:45)
[2020-01-15] MEDS ORDERED: Lanolin Ointment 7 GM TUBE TOP PRN (18:45)
[2020-01-15] MEDS ORDERED: Milk Of Magnesia 30 ML UDCUP PO PRN (18:45)
[2020-01-15] MEDS ORDERED: Benzocaine-Menthol 82.5 ML CAN TOP PRN (18:45)
[2020-01-15] MEDS: Ibuprofen 800 MG TAB PO SCH (21:52)
[2020-01-15] MEDS: Docusate Calcium (SURFAK) 240 MG CAP PO SCH (21:52)
[2020-01-15] MEDS: Labetalol 100 MG TAB PO SCH (21:53)
[2020-01-16] MEDS: Ibuprofen 800 MG TAB PO SCH ×2 (06:09→15:02)
[2020-01-16] MEDS: Ferrous Sulfate 325 MG TAB PO SCH ×2 (07:27→15:03)
--- NOTE | 2020-01-16 08:05 | PDOC.PP ---
Post Progress Note Post Day #: 1 Subjective: Baby on high flow oxygen...improving. PO intake tolerated: yes Flatus: yes Ambulation: yes Vital Signs (12 hours) Temp Pulse Resp BP BP Pulse Ox 01/16/20 07:36 98.5 F 91 20 113/68 97 01/16/20 04:45 98.3 F 96 18 133/61 96 01/16/20 00:30 98.8 F 100 18 124/58 L 97 01/15/20 21:55 99.0 F 100 16 130/72 95 01/15/20 21:53 95 131/81 01/15/20 20:40 99.3 F 95 18 131/81 98 Weight Weight 227 lb - Physical Examination Abdominal: lochia, no distention, appropriately TTP Extremities: negative homans (B) Result Diagrams: 01/14/20 19:40 01/14/20 19:40 Additional Labs: Post Labs Blood Type O POSITIVE 01/14/20 19:40 Hep Bs Antigen Non-Reactive S/CO (NonReactive) 01/14/20 19:40 - Assessment/Plan PPD #1..Doing well. Blood pressures normal off meds. Probable d/c in AM.. has f/ u 6 weeks.
[2020-01-16] MEDS ORDERED: [UNRECOGNIZED DRUG - OTHER] PO SCH (09:00)
[2020-01-16] MEDS ORDERED: MV MN PO SCH (09:00)
[2020-01-16] MEDS ORDERED: HERBAL PO SCH (09:00)
[2020-01-16] MEDS ORDERED: Prenatal Vitamin 1 TAB PO SCH (09:00)
[2020-01-16] MEDS ORDERED: DIGESTIVE PO SCH (09:00)
[2020-01-16] MEDS ORDERED: Bupropion 150 MG SR TAB PO SCH (09:00)
[2020-01-16] MEDS ORDERED: buPROPion HCl 100 MG TAB PO SCH (09:00)
[2020-01-16] MEDS ORDERED: Adacel (T-DAP) 0.5 ML SYRINGE IM ONE (09:00)
[2020-01-16] MEDS ORDERED: IRON PO SCH (09:00)
[2020-01-16] MEDS: Docusate Calcium (SURFAK) 240 MG CAP PO SCH (09:40)
[2020-01-16] MEDS: Labetalol 100 MG TAB PO SCH (09:44)
[2020-01-16 18:54] VITALS: BP 148/72; TEMP 98.8
== END 2020-01-16 22:55 | disposition home or self-care (01) | DRG 807 ==
LOC: L&D 18:57 → 3SW 01-15 21:12
PROVIDERS: ADMIT Obstetrics & Gynecology; ATTEND Obstetrics & Gynecology
PROC: 10907ZC Drainage of Amniotic Fluid, Therapeutic from Products of Conception, Via Natural or Artificial Opening (ICD-10-PCS; 2020-01-14)
PROC: 3E033VJ Introduction of Other Hormone into Peripheral Vein, Percutaneous Approach (ICD-10-PCS; 2020-01-14)
PROC: 10E0XZZ Delivery of Products of Conception, External Approach (ICD-10-PCS; principal; 2020-01-15)
PROC: 0HQ9XZZ Repair Perineum Skin, External Approach (ICD-10-PCS; 2020-01-15)
DX: O10.913 Unspecified pre-existing hypertension complicating pregnancy, third trimester (principal); Z37.0 Single live birth; Z3A.37 37 weeks gestation of pregnancy; O70.0 First degree perineal laceration during delivery
CPT/HCPCS: 36415; 51702; 80053; 85027; 86780; 86850; 86900; 86901; 87340; J1200; J2210; J2405; J2590; J3490

== ENCOUNTER 2021-06-21 10:23 | Emergency (ER) | payer OTHER ==
[2021-06-21] MEDS ORDERED: Adenosine 6 MG/2 ML VIAL ONE (10:41)
[2021-06-21 10:49] LABS: #Eosinphils 0.1 thou/uL (0.0-0.7); #Lymphocytes 1.6 thou/uL (1.20-3.40); #Monocytes 0.7 thou/uL (0.11-0.59); #Neutrophils 9.5 thou/uL (1.40-6.50); %Basophils 0.1 % (0.0-1.0); %Lymphocytes 13.5 % (21.0-51.0); %Monocytes 5.7 % (0.0-10.0); %Neutrophils 79.7 % (42.0-75.0); Hemoglobin 13.7 g/dL (12.0-16.0); Mean Corpuscular HGB CONC 32.4 g/dL (32.0-36.0); Mean Corpuscular Hemoglobin 30.4 pg (27.0-31.0); Mean Corpuscular Volume 93.9 fL (78.0-98.0); Mean Platelet Volume 10.1 fL (7.4-10.4); Platelet Count 152 thou/uL (130-400); RBC Distribution Width 14.2 % (11.5-14.5); Red Blood Cell (RBC) Count 4.49 mill/uL (4.20-5.40); White Blood Cell (WBC) Count 11.9 thou/uL (4.8-10.8)
[2021-06-21 11:13] LABS: ALT (SGPT) 16 U/L (8-55); AST (SGOT) 15 U/L (5-34); Albumin 3.3 g/dL (3.5-5.0); Alkaline Phosphatase 132 U/L (40-110); Anion Gap 13 mmol/L (10-20); BUN (Urea Nitrogen) 5 mg/dL (7.0-18.7); Bilirubin, Total 0.3 mg/dL (0.2-1.2); Calc. Creatinine Clearance 0 mL/min (70-130); Calcium 9.7 mg/dL (7.8-10.44); Carbon Dioxide 22 mmol/L (22-29); Chloride 108 mmol/L (98-107); Glucose 90 mg/dL (70-105); Protein, Total 6.3 g/dL (6.0-8.3); Sodium 139 mmol/L (136-145)
== END 2021-06-21 12:30 | disposition home or self-care (01) ==
LOC: ERS 10:23
DX: O99.413 Diseases of the circulatory system complicating pregnancy, third trimester (principal); I47.1 Supraventricular tachycardia; O99.513 Diseases of the respiratory system complicating pregnancy, third trimester; J45.909 Unspecified asthma, uncomplicated; O99.333 Smoking (tobacco) complicating pregnancy, third trimester; F17.210 Nicotine dependence, cigarettes, uncomplicated; Z3A.34 34 weeks gestation of pregnancy; Z79.82 Long term (current) use of aspirin; Z79.899 Other long term (current) drug therapy
CPT/HCPCS: 80053; 85025; 93005; 96374; J0153

== ENCOUNTER 2021-08-24 03:53 | Emergency (ER) | payer OTHER ==
[2021-08-24] MEDS ORDERED: Adenosine 6 MG/2 ML VIAL ONE ×2 (03:59→04:04)
== END 2021-08-24 05:14 | disposition home or self-care (01) ==
LOC: ERS 03:53
DX: I47.1 Supraventricular tachycardia (principal); J45.909 Unspecified asthma, uncomplicated; F17.210 Nicotine dependence, cigarettes, uncomplicated; Z79.899 Other long term (current) drug therapy
CPT/HCPCS: 93005; 96374; J0153

== ENCOUNTER 2022-06-14 09:59 | Emergency (ER) | payer OTHER | END 2022-06-14 12:06 | disposition home or self-care (01) | LOC: ERS 09:59 | DX: S61.216A Laceration without foreign body of right little finger without damage to nail, initial encounter (principal); W26.8XXA Contact with other sharp object(s), not elsewhere classified, initial encounter; F17.210 Nicotine dependence, cigarettes, uncomplicated | CPT/HCPCS: 99282 ==